=== PATIENT | female | born 1940 | race Caucasian/White ===

== ENCOUNTER 2025-05-09 10:34 | Day surgery (SDC) | payer MEDICARE, OTHER ==
[~2025-05-09] VITALS: Ht 157.5 cm; Wt 54.2 kg
[2025-05-09] VITALS (10 sets, daily range): BP systolic 110–173; BP diastolic 49–73; PULSE 56–67; RESP 14–18; TEMP 97.6; O2SAT 94–97
[~2025-05-09 10:34] MED LIST: AMLO5TAB16 PO; ASCO10004 PO; ASPI81TA52 PO; CYAN100T45 PO; FERR-28 PO; LISI40TA20 PO; MAGN250C PO; METO-395 PO; MULT-1085 PO; SIMV80TA89 PO
--- NOTE | 2025-05-09 11:38 | ELECTROCARDIOGRAPH REPORT ---
[facility] Test Date: 2025-05-09 Test Time: 11:36:26 Pat Name: GARCIA CEE Department: [facility] O Patient ID: 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 Reading MD: Dr. SIGRID Carey Measurements Intervals [place] Rate: 62 P: 51 ND: 175 QRS: 34 QRSD: 95 T: 28 QT: 410 QTc: 417 Interpretive Statements Sinus rhythm Atrial premature complex Probable left ventricular hypertrophy Electronically Signed On 05-09-2025 18:44:[address] SIGRID Carey Please click the below link to view image of tracing.
[2025-05-09] MEDS ORDERED: LIDOcaine 1% (10mg/ml) 2ml vial ONE (14:08)
[2025-05-09] MEDS ORDERED: verapamil 2.5 mg/ml inj IV ONE (14:08)
[2025-05-09] MEDS ORDERED: fentaNYL/PF 50MCG/1 ML 2ML syringe ONE (14:09)
[2025-05-09] MEDS ORDERED: midazolam 1 mg/ML 2ml injection ONE (14:09)
[2025-05-09] MEDS ORDERED: heparin 1,000unit/ml 10ml vial 10 ML ONE (14:09)
[2025-05-09] MEDS ORDERED: nitroGLYCERIN-Tridil 50MG/D5W 250 ML IV ONE (14:10)
[2025-05-09] MEDS ORDERED: LIDOcaine 1% 30ml preserv. free vial ONE (15:17)
[2025-05-09] MEDS ORDERED: HYDROcodone/acetaminophen 10/325mg tab PO PRN (16:10)
[2025-05-09] MEDS ORDERED: HYDROcodone/acetaminophen 5mg/325mg tablet PO PRN (16:10)
[2025-05-09] MEDS ORDERED: ondansetron/PF 4mg/2ml inj IV PRN (16:10)
[2025-05-09] MEDS ORDERED: OXAZEpam 15mg capsule PO PRN (16:10)
[2025-05-09] MEDS: hydrALAZINE 20mg/ml inj. IV ONE (16:21)
--- NOTE | 2025-05-27 21:19 | CARDIOLOGY REPORT ---
DATE OF SERVICE: 05/09/2025 DICTATING PHYSICIAN: Mary Churchill MD CARDIAC CATHETERIZATION REPORT DATE OF STUDY: 05/09/2025 PROCEDURE: Selective coronary angiography. INDICATION: Aortic stenosis. PHYSICIAN: Aris Churchill MD DESCRIPTION OF PROCEDURE: After informed consent was obtained, the patient was brought to the lab, where she was prepped and draped in the usual sterile fashion. A 6-[place]wegian sheath was inserted into the right radial artery. Using a TIG catheter, the catheter was advanced under fluoroscopy guidance into the ascending aorta. The wire was removed. The catheter was manipulated to engage the coronary arteries and selective coronary angiography performed. HEMODYNAMICS: For the patient's hemodynamics, please refer to the event log. Left ventriculography was not performed. FINDINGS: The patient has a normal-caliber, calcified left main coronary artery with mild 20% stenosis. The left anterior descending coronary artery is a medium-caliber, calcified vessel with diffuse 20-30% stenosis. No high-grade stenosis noted. The circumflex coronary artery is a medium-caliber vessel. The obtuse marginal branch of the circumflex coronary artery appears to have a discrete 70% stenosis at a bend in the proximal obtuse marginal branch. The right coronary artery is a medium-caliber, dominant vessel that is also calcified with diffuse 20-30% stenosis throughout the proximal right coronary artery. IMPRESSION: * 1. Calcified coronary arteries. * 2. Mild 20-30% stenosis of the left anterior descending artery and right coronary artery. * 3. 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 Mary Churchill MD TID: [id number] RECEIPT: [id number] TASH/NICOLA
== END 2025-05-09 18:50 | disposition short-term general hospital (02) ==
LOC: SSTAY O 10:34
PROVIDERS: ATTEND Student in an Organized Health Care Education/Training Program
DX: I35.0 Nonrheumatic aortic (valve) stenosis (principal); I25.10 Atherosclerotic heart disease of native coronary artery without angina pectoris; I49.1 Atrial premature depolarization; I10 Essential (primary) hypertension; E78.00 Pure hypercholesterolemia, unspecified; Z86.73 Personal history of transient ischemic attack (TIA), and cerebral infarction without residual deficits; Z79.82 Long term (current) use of aspirin; Z79.899 Other long term (current) drug therapy; Z88.0 Allergy status to penicillin; Z88.1 Allergy status to other antibiotic agents; Z88.8 Allergy status to other drugs, medicaments and biological substances
CPT/HCPCS: 93005; 93454; A6258; A6402; C1751; C1769; C1894; J0360; J1644; J2003; J2250; J3010; J3490; J7030; Q9967; Z7610; 99152